=== PATIENT | female | born 1990 | race African-American/Black ===

== ENCOUNTER 2018-01-03 23:55 | Emergency (ER) | payer OTHER ==
[~2018-01-03] VITALS: Ht 149.9 cm; Wt 62.0 kg
[~2018-01-03 23:55] MED LIST: CLINDAMYCIN HC300 MG PO; EFFEXOR75 MG PO; FLEXERIL10 MG PO; KEFLEX500 MG PO; MEDROXYPROGESTE10 MG PO; Motrin PO; NAPROSYN375 MG PO; NO HOME MEDS; NOHOMEMEDS; NORCO 5/3251 TABLET PO; PEN-VEE K,VEET500 MG PO; PRENATABS RX T1 EACH PO; Percocet 5/325,Endoc PO; ZOFRAN4 MG PO
[2018-01-04 00:22] LABS: HEMATOCRIT 38.3 % (36.0-46.0); HEMOGLOBIN 13.4 G/DL (11.9-15.5); MCV 88.7 FL (83-99); PLATELET COUNT 232 K/uL (156-360); RBC DIS.WIDTH-CV 12.6 % (11.8-14.6); RBC DIS.WIDTH-SD 41.3 % (39-53); RED BLOOD COUNT 4.32 M/uL (3.80-5.20); WHITE BLOOD COUNT 8.6 K/uL (4.1-10.2)
[2018-01-04 00:33] LABS: CHLORIDE 106 mEq/L (99-109); SODIUM 138 mEq/L (136-147)
[2018-01-04 00:35] LABS: GLUCOSE 119 mg/dL (70-99)
[2018-01-04 00:39] LABS: CREATININE 0.8 mg/dL (0.6-1.3); GFR ESTIMATE (CALCULATED) > 59 mL/min/
[2018-01-04 00:40] LABS: UREA NITROGEN (BUN) 10 mg/dL (9-23)
[2018-01-04 00:52] LABS: BASE EXCESS -2.8 mEq/L (-3 to +3); BICARBONATE 21.9 mEq/L (22-26); CARBOXY HGB 4.1 % (0-5); COMMENTS - BLOOD GASES C+A+; DEVICE NC; METHEMOGLOBIN 0.9 % (0-1.5); O2 FLOW 2 L/MIN; PCO2 37 mm Hg (35-45); PO2 126 mm Hg (80-100); SITE LR; pH 7.38 (7.35-7.45)
[2018-01-04 01:16] VITALS: BP 117/85
== END 2018-01-04 01:10 | disposition home or self-care (01) ==
LOC: EME 23:55
PROVIDERS: Emergency Medicine
DX: J70.5 Respiratory conditions due to smoke inhalation (principal); F17.200 Nicotine dependence, unspecified, uncomplicated; Z88.5 Allergy status to narcotic agent
CPT/HCPCS: 36600; 71046; 80048; 82803; 84484; 85027; 93005; 99281; 99283